=== PATIENT | male | born 2000 | race Two or more races ===

== ENCOUNTER 2025-02-18 15:34 | Emergency (ER) | payer OTHER ==
[~2025-02-18] VITALS: Ht 172.7 cm; Wt 57.2 kg
[2025-02-18] MEDS ORDERED: 0.9 % SODIUM CHLORIDE 1,000 ML IV STA (16:31)
[2025-02-18 17:10] LABS: BASO % 1.6 % (0.1-1.2); EOS # 0.04 (0.04-0.54); EOS % 0.4 % (0.7-7.0); LYMPH # 6.97 (1.18-3.74); LYMPH % 62.8 % (19.3-53.1); MEAN PLATELET VOLUME 12.50 fl (9.4-12.4); MONO # 0.78 (0.24-0.82); MONO % 7.0 % (4.7-12.5); NEUT # 3.08 (1.56-6.13); NEUT % 27.8 % (34.0-71.1); RED CELL DISTRIBUTION WIDTH 12.3 % (11.6-14.4)
[2025-02-18 17:36] LABS: ALT/SGPT 482.0 U/L (12-78); AST/SGOT 302.0 U/L (15-37); BILIRUBIN TOTAL 7.84 mg/dL (0.3-1.2); BUN CREA RATIO 11.0 (7.0-25.0); CREATININE SERUM 1.23 mg/dL (0.70-1.30); GFR 73.58; GLOBULINA 4.2 G/DL (2.4-3.5); GLUCOSE FASTING 98.0 mg/dL (65-100); OSMOLALITY SERUM 278.0 MOSM/KG (275-295)
== END 2025-02-18 20:55 | disposition home or self-care (01) ==
LOC: ER 15:34 → EMR PED 17:03
DX: B27.80 Other infectious mononucleosis without complication (principal); Z91.013 Allergy to seafood